=== PATIENT | female | born 1960 | race Caucasian/White ===

== ENCOUNTER 2023-12-05 08:42 | Emergency (ER) | payer OTHER, SELFPAY ==
[2023-12-05 08:48] VITALS: BP 129/75
[2023-12-05 08:57] VITALS: BP 119/74
[2023-12-05 09:00] VITALS: BP 113/85
--- NOTE | 2023-12-05 09:18 | ED.GENMED ---
History of Present Illness
General
Chief Complaint: Chest Pain
Source: patient
Exam Limitations: none
Time Seen by Provider: 12/05/23 09:05
Nursing documentation reviewed up to this point in time: agreed with
History of Present Illness
History of Present Illness:
The patient is a 63-year-old female who recently came home from [facility] and comes with complaints of several days (about 5) of sinus congestion, dry cough, low-grade fever, chills at night, as well as 3 days of chest tightness radiating to her upper
back. Patient denies a history of PE and DVT. She denies a history of cardiac disease. She denies nausea, vomiting and diarrhea. She reports a decreased appetite and generalized body aches as well as stiffness in her neck. She denies headache
and vision changes. She denies sore throat and rash.
Past History
Past History
ED Past Medical History: GERD, Hyperthyroidism and Other (Gee's thyroiditis, gastritis , MVP,migraines)
ED Past Surgical History: (3 c-sections) and Other (Cataracts)
Social History
Tobacco: Non-smoker
Alcohol: Occasional
Drug: None
Personal:
Living: with family
Employment: Employed (Own business)
Family History
Family History: Other; Negative Early CAD
Review of Systems
Review of Systems
Allergies reviewed?: Yes
All Other Systems: ROS reviewed and negative except as documented in HPI and ROS
Constitutional: Reports fever, fatigue, night sweats and chills
EENT: Reports other (Sinus congestion)
Respiratory: Reports cough
Cardiac: Reports chest pain
ABD/GI: Reports anorexia
: Reports no symptoms
Musculoskeletal: Reports muscle pain, neck pain and back pain
Skin: Reports no symptoms
Neurological: Reports no symptoms
Endocrine: Reports no symptoms
Hematologic/Lymphatic: Reports no symptoms
Psychiatric: Reports no symptoms
Phy Exam
Physical Exam
Physical Exam:
Physical Exam
General: no apparent distress, not acutely ill. Nontoxic
Neck: supple. no meningeal signs. normal psoterior pharynx. Ranges neck without difficulty. No midline cervical spine tenderness
Heart: s1/s2 regular rate and rhythm, no murmur. equal radial pulses.
Lungs: no acute respiratory distress. clear bilaterally.
Abdomen: normal bowel sounds. not tender. no CVAT. No pulsatile mass. Soft throughout.
Neuro: alert and oriented. no focal neurological deficits
Skin: no rash
Psychiatric: well kept. interactive and cooperative
Extremities: no edema. no calf tenderness. negative homans. good distal pulses
Scores
Heart Score for Chest Pain Patients
STEMI patient?: No
History: Slightly or Non-Suspicious
ECG: Normal
Age: >45 - <65 years
Risk Factors: 1 or 2 Risk Factors
Troponin: </= Normal Limit
Heart Score for Chest Pain Patients: 2
Heart Score Risk: 2.5% MACE over next 6 weeks
Course
Orders/Labs/Results
Orders:
Orders
12/05/23 08:45
Electrocardiogram (*1) Urgent
Reason for Study: Chest Pain
EKG- Treatment ONCE
12/05/23 09:45
Mag Hydrox/Al Hydrox/Simeth [Maalox] 30 ml Phenobarb/Hyoscy/Atropine/Scop [] 10 ml Viscous Lidocaine 2% [Xylocaine Viscous Cup] 10 ml PO NOW
12/05/23 09:50
COVID-19 Antigen Urgent
Source: Nasal Swab
Complete Blood Count/With Diff Urgent
Comprehensive Metabolic Panel Urgent
Lipase Urgent
Troponin I Urgent
Influenza A+B Rapid Molecular Urgent
JEAN-CLAUDE Source: Nasal Swab
Specimen Description:
12/05/23 10:10
Mag Hydrox/Al Hydrox/Simeth [Maalox] 30 ml .ROUTE .STK-MED ONE
Phenobarb/Hyoscy/Atropine/Scop [] 10 ml .ROUTE .STK-MED ONE
12/05/23 10:11
Viscous Lidocaine 2% [Xylocaine Viscous Cup] 15 ml .ROUTE .STK-MED ONE
12/05/23 10:22
D-Dimer Urgent
12/05/23 10:56
CR Chest - 2 Views Urgent
Comment:
Reason For Exam: CP, COVID +
Abnormal Lab Results
12/05/23
09:50
MPV 11.2 H fL
(7.4-10.4)
SARS-CoV-2 Antigen Positive A
(Negative)
12/05/23 09:50
12/05/23 09:50
Vital Signs
Initial and Last Documented VS:
Initial Vital Signs
Temp Pulse Resp BP Pulse Ox
98.2 F 72 16 129/75 98
12/05/23 08:48 12/05/23 08:48 12/05/23 08:48 12/05/23 08:48 12/05/23 08:48
Last Documented Vital Signs
Temp Pulse Resp BP Pulse Ox
98.2 F 68 11 117/69 98
12/05/23 08:48 12/05/23 10:30 12/05/23 10:30 12/05/23 10:00 12/05/23 10:30
MDM/Problems Addressed
Differential Diagnosis Includes:
Viral illness, pneumonia, aortic dissection, acute cholecystitis
MDM/Problems Addressed:
Patient presents with acute chills, fatigue, body aches, chest pain
*Radiology
Radiology exam reviewed: preliminary read by ED provider (Chest x-ray read by me. No acute disease) and radiology read reviewed
*Pulse Oximetry
Patient hypoxic: no
*EKG
Interpreted by ED Provider?: Yes
Interpretation: normal
Comparison EKG: no changes
Rate: normal
Rhythm: sinus
Interval: normal interval
QRS Pattern: normal QRS
Ischemia: no ischemia
*Critical Care Note
Total Time (30-74mins, 75-104mins- exclusive of procedures): Not Applicable
Data Reviewed
Review of Other/Old Records Reveals: Radiology Studies (Ultrasound reviewed from 2021 of abdomen which showed a normal-appearing aorta and no sign of gallstones)
Source: patient and spouse
Update Note
Update Note:
Patient continues to look well. EKG appears nonischemic and troponin is normal, therefore, it is doubtful it is acute coronary syndrome. Unlikely to be PE or aortic dissection given D-dimer is normal and blood pressure is normal. Patient has not
been tachycardic or tachypneic. There is no sign of bacterial pneumonia. Patient feels better with GI cocktail
ED Attending Note
-
Portions of this chart may have been created with voice recognition software.� Occasional wrong word or��sound alike� substitutions may have occurred due to the inherent limitations of voice recognition software.
Discharge Plan
Departure
Patient Disposition: Home (Routine Discharge)
Date of Disposition: 12/05/23
Time of Disposition: 11:27
Patient with high blood pressure during this ER visit?: No
Condition: Good
Covid-19: Confirmed COVID-19
Discharge Problem:
COVID, Gastritis
Instructions: COVID-19 ED, Gastritis ED, COVID-19 in adults - Discharge instructions
Prescriptions:
New
famotidine [Pepcid] 20 mg tablet
20 mg PO BID 14 Days Qty: 28 0RF
No Action
ascorbic acid (vitamin C) [Vitamin C] 500 MG tablet
500 mg PO DAILY
levothyroxine 125 MCG tablet
125 mcg PO DAILY
polyvinyl alcohol-povidon(PF) [Refresh Classic (PF)] 10 DROPS dropperette
1 drops BOTH EYES QIDPRN PRN (Reason: dry eye)
ondansetron 4 mg Tablet,Disintegrating
4 mg PO TIDPRN PRN (Reason: nausea/vomiting) Qty: 12 0RF
oxycodone-acetaminophen [Percocet] 5-325 mg Tablet
1 tab PO Q6HPRN PRN (Reason: pain) Qty: 7 0RF
prednisone 20 mg tablet
40 mg PO DAILY Qty: 10 0RF
cyclobenzaprine 10 mg tablet
10 mg PO BID PRN (Reason: back pain, muscle spasms) Qty: 10 0RF
Referrals:
Azam Fisher, DO [Family Provider] -
Activity Restrictions/Additional Instructions:
Take 1000 g of Tylenol every 4-6 hours for fever and or pain
Interventions
Interventions:
*Risk Screen - Suicide Last Done: 12/05/23 10:25
*General Assessment Last Done: 12/05/23 10:25
*Neglect/Abuse Screening Last Done: 12/05/23 10:25
*ED COVID-19 Vaccine History Last Done: 12/05/23 08:48
ED- Cardiac Assessment Last Done: 12/05/23 10:25
Discharge Date and Time
Print Language: JAPANESE
[2023-12-05 09:40] VITALS: BMI 25.0
[2023-12-05 10:00] VITALS: BP 117/69
[2023-12-05] MEDS: MAALOX 50 PO (10:12)
[2023-12-05 10:16] LABS: % Basophils 0.2 % (0-2); % Immature Granulocytes 0.2 % (0-0.5); % Lymphocytes 36.3 % (20.5-51.1); % Monocytes 5.8 % (1.7-9.3); % Neutrophils 55.5 % (42.2-75.2); Absolute Eosinophils 0.1 10^3/uL (0-0.7); Absolute Lymphocytes 2.1 10^3/uL (1.2-3.4); Absolute Monocytes 0.3 10^3/uL (0.1-0.6); Absolute Neutrophils 3.3 10^3/uL (1.4-6.5); Hemoglobin 13.7 g/dL (12.0-16.0); Mean Corp Hgb Conc. 34.3 g/dL (33.0-37.0); Mean Corpuscular Hgb 30.9 pg (27.0-31.0); Mean Corpuscular Volume 90.1 fL (81.0-99.0); Mean Platelet Volume 11.2 fL (7.4-10.4); Nucleated Red Blood Cells % 0 %; Platelet Count 208 10^3/uL (130-400); Red Blood Cell Count 4.44 10^6/uL (4.20-5.40); Red Cell Dist. Width 12.7 % (11.5-14.5); White Blood Cell Count 5.9 10^3/uL (4.8-10.8)
[2023-12-05 10:28] LABS: COVID-19 Antigen Positive (Negative)
[2023-12-05 10:31] LABS: ALT (SGPT) 20 U/L (0-35); AST (SGOT) 23 U/L (14-36); Albumin 4.5 g/dl (3.5-5.0); Alkaline Phosphatase 60 U/L (38-126); Blood Urea Nitrogen 14 mg/dl (7-17); Calcium 9.7 mg/dl (8.4-10.2); Carbon Dioxide 30 mmol/L (22-30); Chloride 104 mmol/L (98-107); Estimated Creatinine Clearance 98 ml/min; Glucose 82 mg/dl (70-99); Lipase 100 U/L (23-300); Sodium 142 mmol/L (135-145); Total Bilirubin 1.3 mg/dl (0.2-1.3); Total Protein 7.5 g/dl (6.3-8.2); eGFR > 60.00
[2023-12-05 10:42] LABS: Troponin I < 0.012 ng/ml
[2023-12-05 10:47] LABS: D-Dimer 0.38 ug/mlFEU (0.00-0.50)
== END 2023-12-05 11:53 | disposition home or self-care (01) ==
LOC: EMR 08:42
PROVIDERS: EMERGENCY PHYSICIAN Emergency Medicine; FAMILY PHYSICIAN Family Medicine
DX: U07.1 COVID-19 (principal); K29.00 Acute gastritis without bleeding; Z11.52 Encounter for screening for COVID-19; K21.9 Gastro-esophageal reflux disease without esophagitis; E06.3 Autoimmune thyroiditis; I34.1 Nonrheumatic mitral (valve) prolapse; E05.90 Thyrotoxicosis, unspecified without thyrotoxic crisis or storm; G43.909 Migraine, unspecified, not intractable, without status migrainosus
CPT/HCPCS: 99283; 71046; 80053; 83690; 84484; 85025; 85379; 87502; 87811; 93005